=== PATIENT | male | born 1940 | race African-American/Black ===

== ENCOUNTER → 2016-09-19 | Outpatient (CLI) | payer OTHER ==
--- NOTE | 2016-09-19 15:12 | KCIC ---
Clinical Indications:Reason For Study Reason: RT CAROTID BRUIT / Spl. Instructions: / History: Exam : Carotid Duplex with Grayscale Ultrasound and Spectral and Color Doppler Analysis: PQRS Compliance Statement - Stenosis calculations for CT, MR and conventional angiography are based upon measurement of the distal ICA diameter in accordance with the NASCET methodology. Stenosis calculations for carotid ultrasound studies are derived from validated velocity criteria which are known to correlate with the NASCET methodology. Findings: The common, internal and external carotid arteries were examined by grayscale, color and spectral Doppler ultrasound. There is bilateral carotid plaque greater in the bulbs and more prominent on the left. Flow in both vertebral arteries was antegrade and normal. The following are the velocities and ratios in the carotid arteries on both sides: RIGHT ICA PV:66cm/sec RIGHT CCA PV:87cm/sec RIGHT ICA ED:16cm/sec RIGHT ICA/CCA PV: 0.8 RIGHT VERTEBRAL: antegrade flow RIGHT % STENOSIS: less than 50% LEFT ICA PV:183cm/sec LEFT CCA PV:89cm/sec LEFT ICA ED:19cm/sec LEFT ICA/CCA PV: 2.1 LEFT VERTEBRAL: antegrade flow LEFT % STENOSIS: less than 50% <50% ICA Stenosis: PSV < 125cm/s (EDV < 40cm/s; SVR < 2.0) 50-69% ICA Stenosis: PSV < 125-229cm/s (EDV 40-99cm/s; SVR 2.0-3.9) >70% ICA Stenosis: PSV > 230cm/s (EDV >100cm/s; SVR >4.0) Impression: Bilateral carotid plaque with 50-69 percent stenosis of the left internal carotid artery. There is less than 50 percent stenosis on the right. Electronically signed by: Matheus Carpenter (Sep 19, 2016 15:10:31)
== END | disposition home or self-care (01) ==
LOC: KCIC US 14:04
PROVIDERS: ATTEND Family Medicine
DX: I65.23 Occlusion and stenosis of bilateral carotid arteries (principal); R09.89 Other specified symptoms and signs involving the circulatory and respiratory systems
CPT/HCPCS: 93880

== ENCOUNTER → 2020-06-18 | Outpatient (CLI) | payer OTHER ==
--- NOTE | 2020-06-18 16:41 | RAD ---
MR#: [id number] Date of Study: 06/18/2020 Ordering Physician: ASHWIN GOTTLIEB, Referring Physician: ASHWIN GOTTLIEB, Tech: Emiliana Mehta, MARYBETHMS, RVT, RTR APPROVED REPORT Patient Location: OUT-PATIENT Laterality:Bilateral Indications Carotid Artery Disease Doppler Spectral Velocity Analysis Right Left pCCA 117/13 cm/spCCA 107/17 cm/s mCCA 73/11 cm/smCCA 82/17 cm/s dCCA 91/10 cm/sdCCA 88/14 cm/s Bulb 65/11 cm/sBulb 119/18 cm/s ECA 153/30 cm/sECA 317/20 cm/s pICA 94/21 cm/spICA 357/34 cm/s Karley 93/19 cm/smICA 67/19 cm/s dICA 90/19 cm/sdICA 84/21 cm/s Vert. 40/11 cm/sVert. 60/12 cm/s ICA/CCA 1.28ICA/CCA 4.35 Findings Grayscale images demonstrate mild diffuse irregularities on the right side and severe obstructive mara que on the left side. Based on velocity criteria and spectral waveforms there is overall 0 to less than 50% stenosis on the right side in the internal carotid artery with a normal ICA to CCA ratios. On the left side there is a greater than 70% stenosis involving the carotid bulb and ostial/proximal internal carotid artery with a ICA to CCA ratio of greater than 4. Bilateral vertebral velocities are within normal limits. Critical Notification Critical Value: No <Conclusion> 1. Severe left internal carotid arterial disease. Signed by : Ashwin Gottlieb, Electronically Approved : 06/18/2020 16:40:33
--- NOTE | 2020-06-18 17:11 | CARD ---
MR#: [id number] Date of Study: 06/18/2020 Ordering Physician: QUINCY GOTTLIEB, Referring Physician: QUINCY GOTTLIEB, Tech: Shalonda Pittman [facility] APPROVED REPORT EXAM: Two-dimensional and M-mode echocardiogram with Doppler and color Doppler. Other Information Quality : Good Rhythm : Bradycardia INDICATION Cardiac Disease: CAD 2D DIMENSIONS RVDd2.6 (2.9-3.5cm)Left Atrium(2D)3.3 (1.6-4.0cm) IVSd1.1 (0.7-1.1cm)Aortic Root(2D)3.7 (2.0-3.7cm) LVDd4.8 (3.9-5.9cm)LVOT Diameter2.2 (1.8-2.4cm) PWd1.0 (0.7-1.1cm)LVDs3.0 (2.5-4.0cm) FS (%) 37.4 %SV72.7 ml LVEF(%)67.3 (>50%) Aortic Valve AoV Peak Michael.117.7cm/sAoV VTI26.4cm AO Peak GR.5.5mmHgLVOT VTI 23.31cm AO Mean GR.3mmHgAVA (VTI)3.30cm2 AI P 1/2 [id number] Mitral Valve MV E Dlerjbgs88.6cm/sMV DECEL [id number] MV A Booqsiug89.6cm/sE/A Ratio0.9 TDI Lateral E' P. V8.62cm/sMedial E' P. V5.66cm/s E/Lateral E'7.7E/Medial E'11.8 Tricuspid Valve TR P. Ehovldff094fj/sRAP WXQKNDQN2cgKm TR Peak Gr.61awIoMIRP25dcTl Pulmonary Vein S1 Bquyaihg18.3cm/sS2 Nmsuhora85.51cm/s D2 Ckzqpdkr85.5cm/s LEFT VENTRICLE The left ventricle is normal size. There is normal left ventricular wall thickness. The left ventricu lar systolic function is normal and the ejection fraction is within normal range. The Ejection Fracti on is 60-65%. There is normal LV segmental wall motion. Transmitral Doppler flow pattern is Grade I-a bnormal relaxation pattern. RIGHT VENTRICLE The right ventricle is normal size. The right ventricular systolic function is normal. ATRIA The left atrium size is normal. The right atrium size is normal. The interatrial septum is intact wit h no evidence for an atrial septal defect or patent foramen ovale as noted on 2-D or Doppler imaging. AORTIC VALVE The aortic valve is calcified but opens well. Doppler and Color Flow revealed mild aortic regurgitati on. There is no significant aortic valvular stenosis. MITRAL VALVE The mitral valve is calcified but opens well. Mitral annular calcification is mild. There is no evide nce of mitral valve prolapse. There is no mitral valve stenosis. Doppler and Color-flow revealed trac e mitral regurgitation. TRICUSPID VALVE The tricuspid valve is normal in structure and function. Doppler and Color Flow revealed trace tricus pid regurgitation. The PA pressure was estimated at 28 mmHg. There is no tricuspid valve stenosis. PULMONIC VALVE Doppler and Color Flow revealed mild pulmonic valvular regurgitation. There is no pulmonic valvular s tenosis. GREAT VESSELS The aortic root is normal in size. The ascending aorta is mildly dilated at 3.7 cm. The IVC is normal in size and collapses >50% with inspiration. PERICARDIAL EFFUSION There is no evidence of significant pericardial effusion. Critical Notification Critical Value: No <Conclusion> The left ventricular systolic function is normal and the ejection fraction is within normal range. Th e Ejection Fraction is 60-65%. There is normal LV segmental wall motion. Doppler and Color Flow revealed mild aortic regurgitation. The ascending aorta is mildly dilated at 3.7 cm. Signed by : Quincy Gottlieb, Electronically Approved : 06/18/2020 17:11:14
== END ==
LOC: ECHO 13:55
PROVIDERS: ATTEND Internal Medicine Cardiovascular Disease
DX: I08.8 Other rheumatic multiple valve diseases (principal); I77.810 Thoracic aortic ectasia; R00.1 Bradycardia, unspecified; I65.22 Occlusion and stenosis of left carotid artery; I25.10 Atherosclerotic heart disease of native coronary artery without angina pectoris
CPT/HCPCS: 93306; 93880

== ENCOUNTER → 2021-05-07 | Outpatient (CLI) | payer OTHER ==
--- NOTE | 2021-05-07 12:33 | RAD ---
INDICATION: Reason: LEFT LEG SWELLING / Spl. Instructions: / History: COMPARISON: None. TECHNIQUE: Grayscale, color and doppler ultrasound images were obtained of the left lower extremity v enous vasculature. LEFT: Occlusive thrombus is seen within the distal superficial femoral vein extending into the popliteal ve in and calf including posterior tibial and peroneal vein. IMPRESSION: * Left leg deep vein thrombosis is identified. Preliminary results were given to the ordering provi almaz by the pelt salter who performed the examination. Electronically signed by: Corona Escalante MD (05/07/2021 12:30 PM) [id number]
== END ==
LOC: US 11:29
PROVIDERS: ATTEND Family Medicine
DX: I82.412 Acute embolism and thrombosis of left femoral vein (principal); I82.432 Acute embolism and thrombosis of left popliteal vein; I82.442 Acute embolism and thrombosis of left tibial vein; M79.89 Other specified soft tissue disorders
CPT/HCPCS: 93971

== ENCOUNTER → 2021-10-02 | Outpatient (CLI) | payer MEDICARE, OTHER ==
--- NOTE | 2021-10-03 10:03 | RAD ---
MR#: [id number] Date of Study: 10/02/2021 Ordering Physician: ASHWIN GOTTLIEB, Referring Physician: ASHWIN GOTTLIEB, Tech: Tulio Otero MBA, RDMS, RVT, RDCS, RTR APPROVED REPORT Left Lower Extremity Venous Study for DVT Patient Location: OUT-PATIENT Indications Lower Extremity Edema: Left Vein Imaging (Left) CFV (L): Compressible SFJ (L): Compressible FEM (L): Compressible, Partially Compressible POP (L): Partially Compressible DFV (L): Compressible PTV (L): Spontaneous GSV (L): Spontaneous Peroneals (L): Spontaneous Doppler Evaluation (Left) CFV (L):Spontaneous POP (L):Non-Occlusive Thrombus Findings Grayscale images of deep veins left lower extremity showed fully compressible common femoral, deep fe moral and proximal to mid segments of the superficial femoral veins. The distal segment of the left superficial femoral vein and the popliteal vein with partially compressible. Spectral waveform and c olor duplex analysis was performed. This showed nonocclusive thrombus involving the distal segment o f the left superficial femoral vein extending into the popliteal vein, improved from prior venous dup fay scan from 05/07/2021. There is spontaneous flow in the left calf veins. Critical Notification Critical Value: No <Conclusion> Venous duplex scan left lower extremity showed nonocclusive thrombus involving the distal segment of the left superficial femoral vein extending into the popliteal vein, improved from prior ultrasound f rom 05/07/2021. Signed by : Gary Cunningham, Electronically Approved : 10/03/2021 10:02:51
== END ==
LOC: US 10:45
PROVIDERS: ATTEND Internal Medicine Cardiovascular Disease
DX: I82.412 Acute embolism and thrombosis of left femoral vein (principal); R60.9 Edema, unspecified
CPT/HCPCS: 93971